=== PATIENT | male | born 1950 | race Caucasian/White ===

== ENCOUNTER 2022-06-14 09:21 | Emergency (ER) | payer MEDICARE, BC ==
[2022-06-14 10:31] VITALS: BP 168/82; PULSE 79
== END 2022-06-14 11:36 | disposition home or self-care (01) ==
LOC: JP.ED 09:21
DX: G51.0 Bell's palsy (principal); I10 Essential (primary) hypertension; M19.90 Unspecified osteoarthritis, unspecified site; E11.9 Type 2 diabetes mellitus without complications; Z87.891 Personal history of nicotine dependence; Z79.84 Long term (current) use of oral hypoglycemic drugs; Z79.899 Other long term (current) drug therapy
CPT/HCPCS: 70450; 70450-26; 99284